=== PATIENT | female | born 1950 | race Caucasian/White ===

== ENCOUNTER → 2020-10-02 10:09 | Outpatient (CLI) | payer MEDICARE, SELFPAY ==
--- NOTE | ~2020-10-02 | XR_ITS ---
EXAMINATION: XR abdomen/kub 1V DATE: 10/02/2020 10:32 INDICATION: Kidney stones. TECHNIQUE: A supine view of the abdomen on 2 radiographs was obtained. COMPARISON: CT abdomen and pelvis 10/02/2020 FINDINGS: There are no dilated loops of bowel. There are 5 mm and 2 mm stones in right kidney lower p ole. There are phleboliths in the pelvis. IMPRESSION: 1. Right kidney stones. Reviewed, dictated and finalized at location A. IMPRESSION: 1. Right kidney stones.
--- NOTE | ~2020-10-02 | CT_ITS ---
EXAMINATION: CT abdomen pelvis wo con DATE: 10/02/2020 10:32 INDICATION: Kidney stones. Abnormal urinalysis. TECHNIQUE: Computed tomography (CT) of the abdomen and pelvis was performed without intravenous contr ast. Automated exposure control and iterative reconstruction technique were employed. The dose-length product was 774.32 mGy-cm. COMPARISON: None. FINDINGS: The visualized portions of the lung bases demonstrate mild atelectasis. No pleural effusion . The heart size is normal. No pericardial effusion. The liver and spleen are normal. There are fermin es of cholecystectomy. The pancreas, adrenal glands, and left kidney are normal. There are 5 mm and 2 mm stones in right kidney. There is prominent fat in the inguinal canals that may be hernias. There is diverticulosis of the colon without evidence of diverticulitis. There are no dilated loops of abiodun l. The appendix is normal. There are no pathologically enlarged lymph nodes. There is no free intrape ritoneal fluid. There is moderate thoracolumbar spondylosis. IMPRESSION: 1. Nonobstructing right kidney stones. Reviewed, dictated and finalized at location A.
== END ==
PROVIDERS: Visit Provider Urology
DX: N20.0 Calculus of kidney (principal); Z87.442 Personal history of urinary calculi
CPT/HCPCS: 74018; 74176